=== PATIENT | male | born 1980 | race Caucasian/White ===

== ENCOUNTER 2016-06-30 12:43 | Emergency (ER) | payer SELFPAY ==
[~2016-06-30] VITALS: Ht 170.2 cm; Wt 80.0 kg
[~2016-06-30 12:43] MED LIST: BENZ1TAB OR; BUPR-86 PO; IBUP800T23 PO; RISP2TAB2 PO
[2016-06-30 12:57] VITALS: BP 121/68; PULSE 92; RESP 14; TEMP 98; O2SAT 96
[2016-06-30] MEDS ORDERED: SODIUM CHLOR 0.9% 1000 ML INJ 1,000 ML IV SCH (13:06)
--- NOTE | 2016-06-30 13:13 | PD ---
HPI Chief Complaint: Altered Mental Status Time Seen by Provider: 13:08 Travel History International Travel<30 days: No Contact w/Intl Traveler<30days: No Traveled to known affect area: No History of Present Illness HPI 35-year-old male brought in by EMS from [place]. Patient was found in a local residential yard passed out. Police and EMS were called and patient was arousable with sternal rub. Patient has no idea how he got where he was is unclear when his last memory is. Patient denies fever, chills, or pain. Patient has noted track butt on the right inner forearm, but denies IV drug use. Patient is obviously intoxicated but oxygenating well. There is no obvious signs of trauma upon arrival. 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 Patient is unsure what happened last night. He is allergic to trazodone. PFSH Past Medical History Arthritis: No Blood Disorders: No Bipolar Disorder: Yes Anxiety: Yes Depression: Yes Heart Rhythm Problems: No Cancer: No Cardiovascular Problems: No High Cholesterol: No Chemotherapy: No Chest Pain: No Congestive Heart Failure: No Cerebrovascular Accident: No Diminished Hearing: No Endocrine: No Genitourinary: No Headaches: No Hypertension: No Immune Disorder: No Musculoskeletal: Yes Neurologic: Yes Psychiatric: Yes (BENZOS ABUSE, INTERMITTENT EXPLOSIVE BEHAVIOR) Reproductive: No Respiratory: No Migraines: No Myocardial Infarction: No Radiation Therapy: No Schizophrenia: Yes (SCHIZO AFFECTIVE ) Seizures: No Tetanus Vaccination: > 5 Years Influenza Vaccination: No Past Surgical History Abdominal Surgery: No AICD: No Arteriovenous Shunt: No Cardiac Surgery: No Ear Surgery: No Endocrine Surgery: No Eye Surgery: No Genitourinary Surgery: No Gynecologic Surgery: No Insulin Pump: No Joint Replacement: No Oral Surgery: No Pacemaker: No Thoracic Surgery: No Other Surgery: Yes (LEFT KNEE SUTURES RIGHT ANKLE ORIF) Social History Alcohol Use: No Tobacco Use: No Substance Use: No (HX OF COCCAINE, MARIJUANA, HEROINE) Allergies-Medications (Allergen,Severity, Reaction): Coded Allergies: Trazodone (Verified Allergy, Severe, 06/30/16) Reported Meds & Prescriptions Reported Meds & Active Scripts Active No Active Prescriptions or Reported Medications Review of Systems ROS Limitations: Clinical Condition, Intoxication Except as stated in HPI: all other systems reviewed are Neg Physical Exam Exam Limitations: Clinical Condition, Intoxication Narrative GENERAL: Patient is lethargic but arousable. SKIN: Warm and dry. Normal color. Normal turgor. Multiple puncture wounds noted in the right medial forearm. No other signs of trauma or open wound. HEAD: Atraumatic. Normocephalic. EYES: Pupils equal and round. No scleral icterus. No injection or drainage. ENT: No nasal bleeding or discharge. Mucous membranes pink and moist. NECK: Trachea midline. No JVD. CARDIOVASCULAR: Regular rate and rhythm. RESPIRATORY: No accessory muscle use. Clear to auscultation. Breath sounds equal bilaterally. GASTROINTESTINAL: Abdomen soft, non-tender, nondistended. Hepatic and splenic margins not palpable. MUSCULOSKELETAL: Extremities without clubbing, cyanosis, or edema. No obvious deformities. NEUROLOGICAL: Awake and alert. No obvious cranial nerve deficits. Motor grossly within normal limits. Five out of 5 muscle strength in the arms and legs. Normal speech. PSYCHIATRIC: Unable to determine due to the patient's intoxication Data Data Last Documented VS Vital Signs Date Time Temp Pulse Resp B/P Pulse Ox O2 Delivery O2 Flow Rate FiO2 06/30/16 19:02 60 16 110/71 100 06/30/16 17:43 Room Air 06/30/16 12:57 98.0 Orders Electrocardiogram (06/30/16 ) Alcohol (Ethanol) (06/30/16 13:06) Ammonia (06/30/16 13:06) Complete Blood Count With Diff (06/30/16 13:06) Comprehensive Metabolic Panel (06/30/16 13:06) Creatine Kinase (Cpk) (06/30/16 13:06) Drug Screen, Random Urine (06/30/16 13:06) Salicylates (Aspirin) (06/30/16 13:06) Tylenol (Acetaminophen) (06/30/16 13:06) Urinalysis - C+S If Indicated (06/30/16 13:06) Chest, Single Ap (06/30/16 13:06) Blood Glucose (06/30/16 13:06) Ecg Monitoring (06/30/16 13:06) Iv Access Insert/Monitor (06/30/16 13:06) Oximetry (06/30/16 13:06) Oxygen Administration (06/30/16 13:06) Sodium Chloride 0.9% Flush (Ns Flush) (06/30/16 13:15) Sodium Chlor 0.9% 1000 Ml Inj (Ns 1000 M (06/30/16 13:06) Labs Laboratory Tests Test 06/30/16 15:00 White Blood Count 5.2 TH/MM3 Red Blood Count 4.50 MIL/MM3 Hemoglobin 13.1 GM/DL Hematocrit 39.2 % Mean Corpuscular Volume 87.2 FL Mean Corpuscular Hemoglobin 29.2 PG Mean Corpuscular Hemoglobin 33.5 % Concent Red Cell Distribution Width 14.5 % Platelet Count 169 TH/MM3 Mean Platelet Volume 10.0 FL Neutrophils (%) (Auto) 49.1 % Lymphocytes (%) (Auto) 38.2 % Monocytes (%) (Auto) 9.1 % Eosinophils (%) (Auto) 2.4 % Basophils (%) (Auto) 1.2 % Neutrophils # (Auto) 2.6 TH/MM3 Lymphocytes # (Auto) 2.0 TH/MM3 Monocytes # (Auto) 0.5 TH/MM3 Eosinophils # (Auto) 0.1 TH/MM3 Basophils # (Auto) 0.1 TH/MM3 CBC Comment DIFF FINAL Differential Comment Sodium Level 139 MEQ/L Potassium Level 4.9 MEQ/L Chloride Level 104 MEQ/L Carbon Dioxide Level 27.9 MEQ/L Anion Gap 7 MEQ/L Blood Urea Nitrogen 11 MG/DL Creatinine 1.14 MG/DL Estimat Glomerular Filtration 72 ML/MIN Rate Random Glucose 83 MG/DL Calcium Level 8.8 MG/DL Total Bilirubin 0.5 MG/DL Aspartate Amino Transf 49 U/L (AST/SGOT) Alanine Aminotransferase 123 U/L (ALT/SGPT) Alkaline Phosphatase 115 U/L Ammonia 22 MCMOL/L Total Creatine Kinase 188 U/L Total Protein 7.4 GM/DL Albumin 3.6 GM/DL Salicylates Level 1.9 MG/DL Acetaminophen Level LESS THAN 2.0 MCG/ML Ethyl Alcohol Level LESS THAN 3 MG/DL MDM Medical Decision Making Medical Screen Exam Complete: Yes Emergency Medical Condition: Yes Differential Diagnosis Altered mental status. Polysubstance abuse. Intoxication. Narrative Course Patient is obtunded but arousable and apparently medically stable at time of exam. Labs ordered including CBC CMP, CPK, urine drug screen, salicylates, Tylenol, urinalysis, ammonia level, and serum alcohol level. EKG is performed. Single chest x-ray is ordered. Normal saline boluses initiated 1000 mL IV. Patient is oxygenating well on room air. 1530 hrs. patient is seen getting out of his bed, and pulling on his own IV and monitors. Patient is placed back in his bed by myself, and will continue to be monitored. IV is not restarted. Labs show normal CBC, CMP shows slightly elevated LFTs otherwise no significant findings. Salicylates, acetaminophen, and alcohol are normal. Patient is discussed and seen with Dr. Prescott. 2300 hrs., the patient has been essentially sleeping in bed all day. Care of the patient is assumed by Dr. Mosher. Patient is stable at the end of my shift. Diagnosis Primary Impression: Intoxication by drug Qualified Code: F19.921 - Intoxication by drug, with delirium Scripts No Active Prescriptions or Reported Meds Condition: Stable Norris Georges Jun 30, 2016 13:13
[2016-06-30] MEDS ORDERED: SODIUM CHLORIDE 0.9% FLUSH 5 ML FLUSH IVF PRN (13:15)
[2016-06-30 14:51] VITALS: O2SAT 97
--- NOTE | 2016-06-30 15:00 | RADRPT ---
EXAM DATE/TIME: 06/30/2016 13:15 [facility] COMPARISON: No previous studies available for comparison. INDICATIONS : Syncopal episode. MEDICAL HISTORY : Head trauma. Schizophrenia. SURGICAL HISTORY : None. ENCOUNTER: Initial ACUITY: 1 day PAIN SCORE: Non-responsive. LOCATION: Bilateral chest FINDINGS: A single view of the chest demonstrates the lungs to be symmetrically aerated without evidence of mas s, infiltrate or effusion. The cardiomediastinal contours are unremarkable. Osseous structures are intact. CONCLUSION: Normal examination. James Harvey MD on June 30, 2016 at 14:57 Board Certified Radiologist. This report was verified electronically.
[2016-06-30 15:06] VITALS: BP 115/56; PULSE 84; RESP 16
[2016-06-30 15:12] LABS: AUTOMATED NEUTROPHIL # 2.6 TH/MM3 (1.8-7.7); BASOPHIL # 0.1 TH/MM3 (0-0.2); BASOPHIL % 1.2 % (0.0-2.0); EOSINOPHIL # 0.1 TH/MM3 (0-0.4); EOSINOPHIL % 2.4 % (0.0-4.0); HEMATOCRIT 39.2 % (39.0-51.0); HEMO FLAGS DIFF FINAL; LYMPH % 38.2 % (9.0-44.0); MEAN CELL VOLUME 87.2 FL (80.0-100.0); MEAN CORPUSCULAR HEMOGLOBIN 29.2 PG (27.0-34.0); MEAN CORPUSCULAR HGB CONC 33.5 % (32.0-36.0); MONO % 9.1 % (0.0-8.0); NEUT % 49.1 % (16.0-70.0); PLATELET COUNT 169 TH/MM3 (150-450); RED CELL DISTRIBUTION WIDTH 14.5 % (11.6-17.2); WHITE BLOOD COUNT 5.2 TH/MM3 (4.0-11.0)
[2016-06-30 15:57] LABS: ALKALINE PHOSPHATASE 115 U/L (45-117); ALT (GPT) 123 U/L (12-78); ANION GAP 7 MEQ/L (5-15); AST (GOT) 49 U/L (15-37); BICARBONATE 27.9 MEQ/L (21.0-32.0); BLOOD UREA NITROGEN 11 MG/DL (7-18); CHLORIDE 104 MEQ/L (98-107); CREATINE KINASE 188 U/L (39-308); GLOMERULAR FILTRATION RATE 72 ML/MIN (>89); SODIUM (NA) 139 MEQ/L (136-145); TOTAL BILIRUBIN ADULT 0.5 MG/DL (0.2-1.0)
[2016-06-30 15:58] LABS: ACETAMINOPHEN LESS THAN 2.0 MCG/ML (10.0-30.0); POTASSIUM 4.9 MEQ/L (3.5-5.1)
--- NOTE | 2016-06-30 17:34 | PD ---
Data Data Last Documented VS Vital Signs Date Time Temp Pulse Resp B/P Pulse Ox O2 Delivery O2 Flow Rate FiO2 06/30/16 15:06 84 16 115/56 06/30/16 14:51 97 06/30/16 14:51 Nasal Cannula 06/30/16 12:57 98.0 Orders Electrocardiogram (06/30/16 ) Alcohol (Ethanol) (06/30/16 13:06) Ammonia (06/30/16 13:06) Complete Blood Count With Diff (06/30/16 13:06) Comprehensive Metabolic Panel (06/30/16 13:06) Creatine Kinase (Cpk) (06/30/16 13:06) Drug Screen, Random Urine (06/30/16 13:06) Salicylates (Aspirin) (06/30/16 13:06) Tylenol (Acetaminophen) (06/30/16 13:06) Urinalysis - C+S If Indicated (06/30/16 13:06) Chest, Single Ap (06/30/16 13:06) Blood Glucose (06/30/16 13:06) Ecg Monitoring (06/30/16 13:06) Iv Access Insert/Monitor (06/30/16 13:06) Oximetry (06/30/16 13:06) Oxygen Administration (06/30/16 13:06) Sodium Chloride 0.9% Flush (Ns Flush) (06/30/16 13:15) Sodium Chlor 0.9% 1000 Ml Inj (Ns 1000 M (06/30/16 13:06) Labs Laboratory Tests Test 06/30/16 15:00 White Blood Count 5.2 TH/MM3 Red Blood Count 4.50 MIL/MM3 Hemoglobin 13.1 GM/DL Hematocrit 39.2 % Mean Corpuscular Volume 87.2 FL Mean Corpuscular Hemoglobin 29.2 PG Mean Corpuscular Hemoglobin 33.5 % Concent Red Cell Distribution Width 14.5 % Platelet Count 169 TH/MM3 Mean Platelet Volume 10.0 FL Neutrophils (%) (Auto) 49.1 % Lymphocytes (%) (Auto) 38.2 % Monocytes (%) (Auto) 9.1 % Eosinophils (%) (Auto) 2.4 % Basophils (%) (Auto) 1.2 % Neutrophils # (Auto) 2.6 TH/MM3 Lymphocytes # (Auto) 2.0 TH/MM3 Monocytes # (Auto) 0.5 TH/MM3 Eosinophils # (Auto) 0.1 TH/MM3 Basophils # (Auto) 0.1 TH/MM3 CBC Comment DIFF FINAL Differential Comment Sodium Level 139 MEQ/L Potassium Level 4.9 MEQ/L Chloride Level 104 MEQ/L Carbon Dioxide Level 27.9 MEQ/L Anion Gap 7 MEQ/L Blood Urea Nitrogen 11 MG/DL Creatinine 1.14 MG/DL Estimat Glomerular Filtration 72 ML/MIN Rate Random Glucose 83 MG/DL Calcium Level 8.8 MG/DL Total Bilirubin 0.5 MG/DL Aspartate Amino Transf 49 U/L (AST/SGOT) Alanine Aminotransferase 123 U/L (ALT/SGPT) Alkaline Phosphatase 115 U/L Ammonia 22 MCMOL/L Total Creatine Kinase 188 U/L Total Protein 7.4 GM/DL Albumin 3.6 GM/DL Salicylates Level 1.9 MG/DL Acetaminophen Level LESS THAN 2.0 MCG/ML Ethyl Alcohol Level LESS THAN 3 MG/DL MDM Supervised Visit with LUNA: Yes Narrative Course The history, exam, and medical decision-making in the associated midlevel provider note were completed with my assistance. I reviewed and agree with the findings presented. I attest that I had a [id number] encounter with the patient on the same day, and personally performed and documented my assessment and findings in the medical record. *My assessment and Findings: This is a 35-year-old male who presents to the emergency department intoxicated. He has some horizontal nystagmus, poor eye contact, and appears dissociated. I suspect he abused cannabinoids or another synthetic drug. Labs were all reassuring. Patient will be observed until sober and can be discharged. Scripts No Active Prescriptions or Reported Meds Antionette Prescott MD Jun 30, 2016 17:34
[2016-06-30 17:43] VITALS: BP 112/64; PULSE 55; RESP 16; O2SAT 99
[2016-06-30 19:02] VITALS: BP 110/71; PULSE 60; RESP 16; O2SAT 100
[2016-07-01 01:18] VITALS: BP 116/74; PULSE 82; RESP 20; O2SAT 100
--- NOTE | 2016-07-01 20:44 | EKG ---
Date Performed: 06/30/2016 Time Performed: 13:03:26 PTAGE: 35 years EKG: Sinus rhythm NORMAL ECG PREVIOUS TRACING : 03/13/2012 14.40 Compared to prior tracing no significant change DOCTOR: Hiwot Clayton Interpretating Date/Time 07/01/2016 20:43:36
== END 2016-07-01 06:00 | disposition home or self-care (01) ==
LOC: NEPC 12:43 → NEPA 07-01 06:00
DX: T50.901A Poisoning by unspecified drugs, medicaments and biological substances, accidental (unintentional), initial encounter (principal); R79.89 Other specified abnormal findings of blood chemistry
CPT/HCPCS: 71010; 80053; 80329; 82140; 82550; 85025; 93005; 96360; 96361; 99285; J7030; 80320; G0480